=== PATIENT | female | born 1945 | race Two or more races ===

== ENCOUNTER 2017-07-21 10:18 | Outpatient (CLI) | payer OTHER ==
[~2017-07-21 10:18] MED LIST: CARDURA1 MG; DIOVAN320 MG; PLAVIX75 MG; PRAVASTATIN SOD20 MG
== END 2017-07-21 10:22 | disposition home or self-care (01) ==
LOC: NUCLEAR 10:18
DX: M81.0 Age-related osteoporosis without current pathological fracture (principal)

== ENCOUNTER 2017-08-16 11:44 | Outpatient (CLI) | payer OTHER | END 2017-08-16 11:51 | disposition home or self-care (01) | LOC: EKG 11:44 | DX: I10 Essential (primary) hypertension (principal); H02.409 Unspecified ptosis of unspecified eyelid ==

== ENCOUNTER 2018-01-08 03:26 | Inpatient (IN) | payer OTHER ==
[~2018-01-08] VITALS: Ht 147.3 cm; Wt 81.6 kg
[2018-01-19] MEDS ORDERED: IPRATROPIU0.2 MG/1 M IH (13:13)
[2018-01-19] MEDS ORDERED: ALBUTEROL2.5 MG/3 M IH (13:13)
[2018-01-19] MEDS ORDERED: BENZONATATE200 M1 PO (13:17)
[2018-01-19] MEDS ORDERED: DILTIAZEM 24HR300 MG PO (13:17)
[2018-01-19] MEDS ORDERED: Intestinex CAP PO (13:17)
[2018-01-19] MEDS ORDERED: GABAPENTIN800 MG PO (13:17)
[2018-01-19] MEDS ORDERED: CLOPIDOGREL BIS75 MG PO (13:17)
[2018-01-19] MEDS ORDERED: ALPRAZOLAM1 MG PO (13:17)
[2018-01-19] MEDS ORDERED: Theo-24 PO (13:17)
[2018-01-19] MEDS ORDERED: Lantus 1000 UNITS/10 SUBCUTANEO (13:17)
[2018-01-19] MEDS ORDERED: Pulmicort 0.5 MG/2 M IH (13:18)
[2018-01-19] MEDS ORDERED: LASIX20 MG PO (14:20)
== END 2018-01-19 19:22 | disposition home health service (06) | DRG 389 ==
LOC: ER 03:26 → SURH 08:28 → SEC-K 08:28 → SURH 10:53
PROC: 3E0F7GC Introduction of Other Therapeutic Substance into Respiratory Tract, Via Natural or Artificial Opening (ICD-10-PCS; principal; 2018-01-08)
PROC: 3E0336Z Introduction of Nutritional Substance into Peripheral Vein, Percutaneous Approach (ICD-10-PCS; 2018-01-08)
PROC: BW25ZZZ Computerized Tomography (CT Scan) of Chest, Abdomen and Pelvis (ICD-10-PCS; 2018-01-08)
PROC: BW25Y0Z Computerized Tomography (CT Scan) of Chest, Abdomen and Pelvis using Other Contrast, Unenhanced and Enhanced (ICD-10-PCS; 2018-01-10)
PROC: 4A033R1 Measurement of Arterial Saturation, Peripheral, Percutaneous Approach (ICD-10-PCS; 2018-01-11)
PROC: 02HV33Z Insertion of Infusion Device into Superior Vena Cava, Percutaneous Approach (ICD-10-PCS; 2018-01-13)
PROC: BW24ZZZ Computerized Tomography (CT Scan) of Chest and Abdomen (ICD-10-PCS; 2018-01-14)
DX: K56.690 Other partial intestinal obstruction (principal); J44.1 Chronic obstructive pulmonary disease with (acute) exacerbation; J45.51 Severe persistent asthma with (acute) exacerbation; N17.8 Other acute kidney failure; E86.0 Dehydration; E11.42 Type 2 diabetes mellitus with diabetic polyneuropathy; E11.65 Type 2 diabetes mellitus with hyperglycemia; I10 Essential (primary) hypertension; R54 Age-related physical debility; E66.8 Other obesity

== ENCOUNTER 2018-01-22 04:56 | Inpatient (IN) | payer OTHER ==
[~2018-01-22] VITALS: Ht 147.3 cm; Wt 81.6 kg
[~2018-01-22 04:56] MED LIST changes: +ALBUTEROL2.5 MG/3 M IH; +ALPRAZOLAM1 MG PO; +BENZONATATE200 M1 PO; +CLOPIDOGREL BIS75 MG PO; +DILTIAZEM 24HR300 MG PO; +GABAPENTIN800 MG PO; +IPRATROPIU0.2 MG/1 M IH; +Intestinex CAP PO; +LASIX20 MG PO; +Lantus 1000 UNITS/10 SUBCUTANEO; +Pulmicort 0.5 MG/2 M IH; +Theo-24 PO
[2018-02-06] MEDS ORDERED: CLOPIDOGREL BIS75 MG PO (14:18)
[2018-02-06] MEDS ORDERED: SPIRONOLACTONE25 MG PO (14:18)
[2018-02-06] MEDS ORDERED: GABAPENTIN800 MG PO (14:18)
[2018-02-06] MEDS ORDERED: TOPROL XL25 M1 PO (14:18)
[2018-02-06] MEDS ORDERED: B Complex CAPSULE PO (14:18)
[2018-02-06] MEDS ORDERED: LISINOPRIL2.5 MG PO (14:18)
[2018-02-06] MEDS ORDERED: DILANTIN100 MG PO (14:18)
[2018-02-06] MEDS ORDERED: LIPITOR40 MG PO (14:18)
== END 2018-02-06 16:54 | disposition home health service (06) | DRG 208 ==
LOC: ER 04:56 → ICU-2 12:27 → ICU 12:27 → MEDI 02-01 11:17 → MEDJ 02-01 11:17
PROC: 5A1945Z Respiratory Ventilation, 24-96 Consecutive Hours (ICD-10-PCS; principal; 2018-01-22)
PROC: 0BH17EZ Insertion of Endotracheal Airway into Trachea, Via Natural or Artificial Opening (ICD-10-PCS; 2018-01-22)
PROC: 06HM33Z Insertion of Infusion Device into Right Femoral Vein, Percutaneous Approach (ICD-10-PCS; 2018-01-22)
PROC: 4A033R1 Measurement of Arterial Saturation, Peripheral, Percutaneous Approach (ICD-10-PCS; 2018-01-22)
PROC: BB24Y0Z Computerized Tomography (CT Scan) of Bilateral Lungs using Other Contrast, Unenhanced and Enhanced (ICD-10-PCS; 2018-01-22)
PROC: 3E0F7GC Introduction of Other Therapeutic Substance into Respiratory Tract, Via Natural or Artificial Opening (ICD-10-PCS; 2018-01-22)
PROC: B345ZZZ Ultrasonography of Bilateral Common Carotid Arteries (ICD-10-PCS; 2018-01-22)
PROC: B348ZZZ Ultrasonography of Bilateral Internal Carotid Arteries (ICD-10-PCS; 2018-01-22)
PROC: B020Y0Z Computerized Tomography (CT Scan) of Brain using Other Contrast, Unenhanced and Enhanced (ICD-10-PCS; 2018-01-22)
PROC: BW21Y0Z Computerized Tomography (CT Scan) of Abdomen and Pelvis using Other Contrast, Unenhanced and Enhanced (ICD-10-PCS; 2018-01-22)
PROC: 4A00X4Z Measurement of Central Nervous Electrical Activity, External Approach (ICD-10-PCS; 2018-01-23)
PROC: B246ZZZ Ultrasonography of Right and Left Heart (ICD-10-PCS; 2018-01-23)
PROC: 8E0ZXY6 Isolation (ICD-10-PCS; 2018-01-24)
PROC: 5A09457 Assistance with Respiratory Ventilation, 24-96 Consecutive Hours, Continuous Positive Airway Pressure (ICD-10-PCS; 2018-01-25)
PROC: 4A12X4Z Monitoring of Cardiac Electrical Activity, External Approach (ICD-10-PCS; 2018-02-01)
PROC: 06PYX3Z Removal of Infusion Device from Lower Vein, External Approach (ICD-10-PCS; 2018-02-06)
DX: J69.0 Pneumonitis due to inhalation of food and vomit (principal); J96.01 Acute respiratory failure with hypoxia; I21.4 Non-ST elevation (NSTEMI) myocardial infarction; I50.23 Acute on chronic systolic (congestive) heart failure; I63.59 Cerebral infarction due to unspecified occlusion or stenosis of other cerebral artery; J45.52 Severe persistent asthma with status asthmaticus; A04.72 Enterocolitis due to Clostridium difficile, not specified as recurrent; G40.802 Other epilepsy, not intractable, without status epilepticus; J90 Pleural effusion, not elsewhere classified; I24.9 Acute ischemic heart disease, unspecified; B37.0 Candidal stomatitis; E11.42 Type 2 diabetes mellitus with diabetic polyneuropathy; E11.65 Type 2 diabetes mellitus with hyperglycemia; Z78.1 Physical restraint status; E66.01 Morbid (severe) obesity due to excess calories; D50.8 Other iron deficiency anemias; I11.0 Hypertensive heart disease with heart failure; E87.6 Hypokalemia; I25.10 Atherosclerotic heart disease of native coronary artery without angina pectoris; D63.8 Anemia in other chronic diseases classified elsewhere; E88.09 Other disorders of plasma-protein metabolism, not elsewhere classified; E83.51 Hypocalcemia

== ENCOUNTER 2018-03-21 11:07 | Outpatient (CLI) | payer OTHER ==
[~2018-03-21 11:07] MED LIST changes: +B Complex CAPSULE PO; +DILANTIN100 MG PO; +LIPITOR40 MG PO; +LISINOPRIL2.5 MG PO; +SPIRONOLACTONE25 MG PO; +TOPROL XL25 M1 PO
== END 2018-03-21 11:14 | disposition home or self-care (01) ==
LOC: RAD 501 11:07
DX: R10.84 Generalized abdominal pain (principal); D50.8 Other iron deficiency anemias; D12.4 Benign neoplasm of descending colon; Z87.19 Personal history of other diseases of the digestive system

== ENCOUNTER 2019-03-14 10:26 | Outpatient (CLI) | payer OTHER | END 2019-03-14 15:43 | disposition home or self-care (01) | LOC: MAMO-SONO 10:26 | DX: Z12.31 Encounter for screening mammogram for malignant neoplasm of breast (principal); Z87.898 Personal history of other specified conditions; R10.84 Generalized abdominal pain ==

== ENCOUNTER 2019-07-26 09:32 | Outpatient (CLI) | payer OTHER | END 2019-07-26 10:50 | disposition home or self-care (01) | LOC: NUCLEAR 09:32 | DX: M81.0 Age-related osteoporosis without current pathological fracture (principal) ==

== ENCOUNTER 2020-11-12 01:44 | Emergency (ER) | payer OTHER ==
[~2020-11-12] VITALS: Ht 144.8 cm; Wt 68.0 kg
== END 2020-11-12 13:00 | disposition home or self-care (01) ==
LOC: ER 01:44
DX: K29.60 Other gastritis without bleeding (principal); K52.89 Other specified noninfective gastroenteritis and colitis

== ENCOUNTER 2021-03-31 08:00 | Outpatient (CLI) | payer OTHER | END 2021-03-31 08:30 | disposition home or self-care (01) | LOC: PPH VACUNA 08:00 | PROVIDERS: ATTEND Emergency Medicine Pediatric Emergency Medicine | DX: Z23 Encounter for immunization (principal) ==

== ENCOUNTER 2021-08-20 10:32 | Outpatient (CLI) | payer OTHER | END 2021-08-20 11:00 | disposition home or self-care (01) | LOC: NUCLEAR 10:32 | PROVIDERS: ATTEND Internal Medicine Rheumatology | DX: M81.0 Age-related osteoporosis without current pathological fracture (principal) ==

== ENCOUNTER 2021-12-02 10:36 | Outpatient (CLI) | payer OTHER | END 2021-12-02 10:51 | disposition home or self-care (01) | LOC: PPH VACUNA 10:36 | PROVIDERS: ATTEND Emergency Medicine Pediatric Emergency Medicine | DX: Z23 Encounter for immunization (principal) ==

== ENCOUNTER 2023-07-10 13:06 | Inpatient (IN) | payer OTHER ==
[~2023-07-10] VITALS: Ht 144.8 cm; Wt 79.4 kg
[2023-07-10] MEDS ORDERED: METFORMIN HCL500 M4 PO (13:37)
[2023-07-10 14:35] LABS: ABG PH 7.442 (7.35-7.45); ABG PO2 62.9 mmHg (80-100); BASE EXCESS 1.9 mmol/l; SaO2 92.8 %
[2023-07-10 14:36] LABS: Tco2 27.2 mmol/l; allen test SATISFACTORY; o2 21 %; puncture site RADIAL RIGHT
[2023-07-10 15:19] LABS: HEMATOCRIT 31.5 % (36.0-45.00); HEMOGLOBIN 10.4 g/dL (12.0-15.00); PLATELET COUNT 284 K/uL (150-450); RED BLOOD COUNT 3.98 M/uL (4.00-6.00); RED CELL DISTRIBUTION WIDTH 15.3 % (11.5-14.5)
[2023-07-10 15:50] LABS: ALBUMIN 2.4 gm/dL (3.4-5.0); BILIRUBIN TOTAL 0.54 mg/dL (0.3-1.2); CALCIUM 8.6 mg/dL (8.5-10.1); CREATININE SERUM 0.71 mg/dL (0.55-1.02); GFR 79.61; GLOBULINA 4.1 G/DL (2.4-3.5); POTASSIUM 3.37 mEq/L (3.5-5.1); TOTAL PROTEIN 6.5 gm/dL (6.4-8.2)
[2023-07-10 19:13] LABS: INR 1.19; PROTHROMBIN TIME 12.3 SECONDS (9.0-11.5)
[2023-07-10 19:15] LABS: URINE APPEARANCE Clear; URINE BILIRRUBIN Negative (NEGATIVE); URINE BLOOD Negative; URINE COLOR Yellow; URINE LEUKOCYTE Negative; URINE NITRATE Negative; URINE PROTEIN Trace (NEGATIVE); URINE UROBILINOGEN 0.2 E.U./dl
[2023-07-10 19:18] LABS: URINE EPITHELIAL CELLS 16.2 uL (0.0-38.8); URINE RBC 3.1 uL (0.0-20.8)
[2023-07-10 19:28] LABS: URINE GLUCOSE >=1000 MG/DL (NEGATIVE)
[2023-07-10 19:38] LABS: D DIMER 1.06 MG/L; PARTIAL THROMBOPLASTIN TIME 26.2 SECONDS (22.0-34.0)
[2023-07-12 07:50] LABS: CALCIUM 8.9 mg/dL (8.5-10.1); CREATININE SERUM 0.58 mg/dL (0.55-1.02); GFR 100.54; POTASSIUM 4.13 mEq/L (3.5-5.1)
[2023-07-14 10:08] LABS: ABG PH 7.415 (7.35-7.45); ABG PO2 81.6 mmHg (80-100); ABG pCO2 41.2 mmHg (35-45); BASE EXCESS 1.1 mmol/l; BICARBONATE 25.8 mmol/l (23-25); SaO2 96.1 %; Tco2 27.1 mmol/l
[2023-07-14 10:10] LABS: o2 21 %
[2023-07-14 10:11] LABS: allen test SATISFACTORY; puncture site RADIAL RIGHT
[2023-07-15] MEDS ORDERED: [UNRECOGNIZED DRUG - OTHER] PO (15:43)
[2023-07-15] MEDS ORDERED: HYDROCODONE-CH115 ML PO (15:43)
[2023-07-15] MEDS ORDERED: ADVAIR HFA 115/12 GM IH (15:43)
[2023-07-15] MEDS ORDERED: BENZONATATE100 MG PO (15:43)
[2023-07-18 00:06] LABS: bordetella igg 1.41 index (0.00-0.94)
== END 2023-07-15 16:48 | disposition home or self-care (01) | DRG 202 ==
LOC: ER 13:06 → SURH 18:05 → SEC-K 18:05 → SURH 19:15
PROVIDERS: General Practice; Internal Medicine; Internal Medicine Endocrinology, Diabetes & Metabolism; ADMIT Internal Medicine; ATTEND Internal Medicine
PROC: BW24ZZZ Computerized Tomography (CT Scan) of Chest and Abdomen (ICD-10-PCS; principal; 2023-07-10)
PROC: BW24YZZ Computerized Tomography (CT Scan) of Chest and Abdomen using Other Contrast (ICD-10-PCS; 2023-07-11)
PROC: B24BZZZ Ultrasonography of Heart with Aorta (ICD-10-PCS; 2023-07-11)
PROC: B54DZZZ Ultrasonography of Bilateral Lower Extremity Veins (ICD-10-PCS; 2023-07-11)
PROC: 02HV33Z Insertion of Infusion Device into Superior Vena Cava, Percutaneous Approach (ICD-10-PCS; 2023-07-12)
DX: J45.41 Moderate persistent asthma with (acute) exacerbation (principal); J44.1 Chronic obstructive pulmonary disease with (acute) exacerbation; E86.0 Dehydration; D64.9 Anemia, unspecified; E11.65 Type 2 diabetes mellitus with hyperglycemia; Z79.4 Long term (current) use of insulin; I10 Essential (primary) hypertension; E11.40 Type 2 diabetes mellitus with diabetic neuropathy, unspecified; E78.5 Hyperlipidemia, unspecified; Z20.822 Contact with and (suspected) exposure to COVID-19; I25.10 Atherosclerotic heart disease of native coronary artery without angina pectoris; I11.9 Hypertensive heart disease without heart failure
CPT/HCPCS: 71275